=== PATIENT | male | born 1990 | race Two or more races ===

== ENCOUNTER → 2017-04-08 | Outpatient (CLI) | payer OTHER ==
--- NOTE | 2017-04-08 13:54 | DIREP ---
PROCEDURE:MRI JOINT LOWER EXTREMITY-RT W/O COMPARISON:None. INDICATIONS:PAIN TECHNIQUE:A complete multi-planar examination was performed without contrast. FINDINGS: LATERAL LIGAMENTS AND SOFT TISSUE STRUCTURES TALOFIBULAR:Normal. CALCANEOFIBULAR:Normal. TIBIOFIBULAR:Normal. PERONEAL TENDONS:Normal. No subluxation, tendinopathy, or tear. MEDIAL LIGAMENTS AND SOFT TISSUE STRUCTURES DELTOID COMPLEX:Normal. SPRING LIGAMENT:Normal. TARSAL TUNNEL:Normal. FLEXORS:Normal. OTHER TENDONS EXTENSORS:Normal. ACHILLES:Normal. No surrounding abnormality. PLANTAR FASCIA:Normal. No tear or surrounding soft tissue edema to suggest fasciitis. SINUS TARSI:There is edema within the sinus tarsus. Correlate for clinical symptoms of sinus tarsus syndrome. BONES:Normal. No arthropathy, bone edema, osteochondral defect, or other bone lesion. EFFUSIONS:No joint effusion. OTHER:No other significant findings. CONCLUSION:Edema within the sinus tarsus. Correlate clinical symptoms of sinus tarsus syndrome. Dictated by: Trevon Flynn M.D. on 04/08/2017 at 01:48 PM
== END | disposition home or self-care (01) ==
LOC: MRI 08:32
PROVIDERS: ATTEND Orthopaedic Surgery
DX: M25.571 Pain in right ankle and joints of right foot (principal); G47.50 Parasomnia, unspecified
CPT/HCPCS: 73718; 73721